=== PATIENT | female | born 1990 | race African-American/Black ===

== ENCOUNTER 2019-06-09 10:30 | Observation (INO) | payer OTHER ==
[~2019-06-09] VITALS: Ht 157.5 cm; Wt 112.5 kg
[2019-06-09 11:22] VITALS: BP 124/67
[2019-06-09 11:47] LABS: HEMATOCRIT 34.5 % (36-48); HEMOGLOBIN 11.3 g/dL (12.0-16.0); MEAN CORPUSCULAR VOLUME 87.1 fL (80-94); RED BLOOD CELL COUNT(AUTO) 3.96 MIL/uL (4.20-5.40); WHITE BLOOD COUNT (AUTO) 10.8 K/uL (4.8-10.8)
[2019-06-09 11:48] LABS: BASOPHILS % (AUTO) 0.2 % (0.0-2.0); EOSINOPHILS % (AUTO) 0.9 % (0.0-4.0); LYMPHOCYTES % (AUTO) 15.6 % (20.5-51.1); MEAN CORPUSCULAR HEMOGLOBIN 29 pg (27-31); MEAN CORPUSCULAR HGB CONC 33 g/dL (33-37); MONOCYTES % (AUTO) 11.9 % (1.7-9.3); NEUTROPHILS % (AUTO) 71.4 % (42.2-75.2); PLATELET COUNT (AUTO) 307 K/uL (140-450); RED CELL DISTRIBUTION WIDTH 14.3 % (11.6-13.7)
[2019-06-09 11:49] LABS: EOSINOPHILS # (AUTO) 0.1 K/uL (0-0.4); LYMPHOCYTES # (AUTO) 1.7 K/uL (2.5-16.5); MONOCYTES # (AUTO) 1.3 K/uL (0.8-1.0); NEUTROPHILS # (AUTO) 7.7 K/uL (1.8-7.7)
[2019-06-09] MEDS ORDERED: BETAMETH ACET/BETAMETH NA PH 30 MG/5 ML VIAL IM SCH (12:00)
[2019-06-09] MEDS ORDERED: BETAMETH ACET/BETAMETH NA PH 30 MG/5 ML VIAL IM ONE (12:18)
[2019-06-09 12:27] LABS: APPEARANCE,URINE CLEAR (CLEAR); BILIRUBIN,URINE NEGATIVE (NEGATIVE); BLOOD, URINE NEGATIVE (NEGATIVE); COLOR,URINE YELLOW (YELLOW); UGLUCOSE 1+ (NEGATIVE)
[2019-06-09 12:28] LABS: LEUKOCYTE ESTERASE ,URINE NEGATIVE (NEGATIVE); NITRITE, URINE NEGATIVE (NEGATIVE)
[2019-06-09 12:30] LABS: RBC,URINE NONE SEEN /HPF (0-5)
[2019-06-09] MEDS ORDERED: FOLI0.8T PO (15:26)
[2019-06-09] MEDS ORDERED: PNV91TAB10 PO (15:26)
[2019-06-10] MEDS ORDERED: OSC500 PO (13:12)
== END 2019-06-09 17:10 | disposition home or self-care (01) ==
LOC: MLD 10:30
PROVIDERS: ADMIT Obstetrics & Gynecology; ATTEND Obstetrics & Gynecology
DX: O13.3 Gestational [pregnancy-induced] hypertension without significant proteinuria, third trimester (principal); Z3A.32 32 weeks gestation of pregnancy
CPT/HCPCS: 36415; 76805; 81001; 84550; 85025; 85384; 86886; 86900; 86901; 87086; 96372; G0378; J0702; Q0092

== ENCOUNTER 2019-06-10 12:19 | Observation (INO) | payer OTHER ==
[~2019-06-10] VITALS: Ht 157.5 cm; Wt 112.5 kg
[~2019-06-10 12:19] MED LIST: FOLI0.8T PO; PNV91TAB10 PO
[2019-06-10] MEDS ORDERED: BETAMETH ACET/BETAMETH NA PH 30 MG/5 ML VIAL IM SCH (12:35)
[2019-06-10] MEDS ORDERED: BETAMETH ACET/BETAMETH NA PH 30 MG/5 ML VIAL IM ONE (12:46)
[2019-06-10 12:49] VITALS: BP 121/59
[2019-06-10] MEDS ORDERED: OSC500 PO (13:12)
== END 2019-06-10 13:30 | disposition home or self-care (01) ==
LOC: MLD 12:19
PROVIDERS: ADMIT Obstetrics & Gynecology; ATTEND Obstetrics & Gynecology
DX: O13.3 Gestational [pregnancy-induced] hypertension without significant proteinuria, third trimester (principal); Z3A.32 32 weeks gestation of pregnancy
CPT/HCPCS: 81000; 96372; G0378; J0702

== ENCOUNTER 2019-07-16 22:29 | Inpatient (IN) | payer OTHER ==
[~2019-07-16] VITALS: Ht 157.5 cm; Wt 115.2 kg
[~2019-07-16 22:29] MED LIST changes: +OSC500 PO
[2019-07-17 02:15] LABS: APPEARANCE,URINE CLEAR (CLEAR); COLOR,URINE YELLOW (YELLOW); UGLUCOSE 2+ (NEGATIVE)
[2019-07-17 02:16] LABS: BILIRUBIN,URINE NEGATIVE (NEGATIVE); BLOOD, URINE NEGATIVE (NEGATIVE); LEUKOCYTE ESTERASE ,URINE NEGATIVE (NEGATIVE); NITRITE, URINE NEGATIVE (NEGATIVE)
[2019-07-17 02:17] LABS: ANION GAP 12.6 (8-16); CARBON DIOXIDE 25.2 mmol/L (21-32); CREATININE 0.5 mg/dL (0.6-1.3); POTASSIUM 3.8 mmol/L (3.5-5.1)
[2019-07-17 02:18] LABS: RBC,URINE 0-5 /HPF (0-5); WBC,URINE 0-5 /HPF (0-5)
[2019-07-17 02:19] LABS: PROTHROMBIN TIME 9.3 secs (10.8-13.4)
[2019-07-17 02:22] LABS: ALBUMIN 2.4 g/dL (3.4-5.0); MAGNESIUM 1.7 mg/dL (1.8-2.4); TOTAL BILIRUBIN 0.1 mg/dL (0.0-1.0)
[2019-07-17] MEDS ORDERED: CLINDAMYCIN 900 MG in DEXTROSE 5% 100 ML IV SCH (02:25)
[2019-07-17] MEDS ORDERED: CARBOPROST 250 MCG/ML AMP IM PRN (02:25)
[2019-07-17] MEDS ORDERED: NALBUPHINE 10 MG/ML AMP IVP PRN (02:25)
[2019-07-17] MEDS ORDERED: PROMETHAZINE 25 MG/ML VIAL IVP PRN (02:25)
[2019-07-17] MEDS ORDERED: METHYLERGONOVINE 0.2 MG/ML AMP IM PRN (02:25)
[2019-07-17] MEDS ORDERED: MISOPROSTOL 25 MCG TAB VG PRN (02:30)
[2019-07-17] MEDS: LACTATED RINGERS 1,000 ML IV SCH ×2 (04:12→22:20)
[2019-07-17] MEDS ORDERED: MISOPROSTOL 25 MCG TAB ONE (04:15)
[2019-07-17 05:21] VITALS: BP 132/66
[2019-07-17] MEDS ORDERED: CLINDAMYCIN 900 MG/6 ML VIAL IV ONE ×3 (08:02→23:55)
[2019-07-17 10:02] LABS: BASOPHILS # (AUTO) 0.1 K/uL (0.00-0.22); BASOPHILS % (AUTO) 0.6 % (0.0-2.0); EOSINOPHILS # (AUTO) 0.1 K/uL (0-0.4); EOSINOPHILS % (AUTO) 0.5 % (0.0-4.0); HEMATOCRIT 35.3 % (36-48); HEMOGLOBIN 11.4 g/dL (12.0-16.0); LYMPHOCYTES % (AUTO) 17.6 % (20.5-51.1); MEAN CORPUSCULAR HEMOGLOBIN 28 pg (27-31); MEAN CORPUSCULAR HGB CONC 32 g/dL (33-37); MEAN CORPUSCULAR VOLUME 87.3 fL (80-94); MONOCYTES # (AUTO) 1.3 K/uL (0.8-1.0); MONOCYTES % (AUTO) 10.9 % (1.7-9.3); NEUTROPHILS # (AUTO) 8.1 K/uL (1.8-7.7); NEUTROPHILS % (AUTO) 70.4 % (42.2-75.2); PLATELET COUNT (AUTO) 305 K/uL (140-450); RED BLOOD CELL COUNT(AUTO) 4.04 MIL/uL (4.20-5.40); RED CELL DISTRIBUTION WIDTH 15.5 % (11.6-13.7); WHITE BLOOD COUNT (AUTO) 11.5 K/uL (4.8-10.8)
[2019-07-17] MEDS ORDERED: OXYTOCIN 20 UNITS in LACTATED RINGERS 1,000 ML IV SCH (12:20)
--- NOTE | 2019-07-17 13:53 | NUR ---
PATIENT HAS BEEN SCREENED AND CATEGORIZED LOW NUTRITION RISK. PATIENT WILL BE SEEN WITHIN 7 DAYS OF ADMISSION. 07/23/[address]
[2019-07-17] MEDS ORDERED: fentaNYL 0.05 MG/ML VIAL ONE ×2 (14:13→20:53)
[2019-07-17] MEDS: fentaNYL 0.05 MG/ML VIAL IVP PRN ×2 (14:15→21:01)
[2019-07-17] MEDS: CLINDAMYCIN 900 MG in DEXTROSE 5% 100 ML IV SCH (15:52)
[2019-07-17] MEDS ORDERED: ROPIVACAINE 0.2%/NS PREMIX 100 ML EPI ONE (22:26)
[2019-07-18] MEDS: CLINDAMYCIN 900 MG in DEXTROSE 5% 100 ML IV SCH ×3 (00:01→16:00)
[2019-07-18] MEDS ORDERED: CLINDAMYCIN 900 MG/6 ML VIAL IV ONE ×4 (08:01→23:57)
[2019-07-18] MEDS: LACTATED RINGERS 1,000 ML IV SCH ×2 (11:02→20:26)
[2019-07-18] MEDS ORDERED: ROPIVACAINE 0.2%/NS PREMIX 100 ML EPI ONE (18:57)
[2019-07-19] MEDS: CLINDAMYCIN 900 MG in DEXTROSE 5% 100 ML IV SCH (00:04)
[2019-07-19] MEDS ORDERED: ONDANSETRON 4 MG/2 ML VIAL IVP PRN ×2 (00:45→07:55)
[2019-07-19] MEDS ORDERED: NALOXONE 0.4 MG/ML VIAL IVP PRN ×2 (00:45→07:55)
[2019-07-19] MEDS ORDERED: diphenhydrAMINE 50 MG/ML VIAL IVP PRN (00:45)
[2019-07-19] MEDS ORDERED: HYDROmorphone 1 MG/ML AMP IVP PRN ×3 (00:45→16:35)
[2019-07-19] MEDS ORDERED: fentaNYL 0.05 MG/ML VIAL ONE ×4 (01:08→06:26)
[2019-07-19] MEDS: fentaNYL 0.05 MG/ML VIAL IVP PRN ×3 (01:11→06:10)
[2019-07-19] MEDS ORDERED: CITRIC ACID/SODIUM CITRATE 30 ML UDC ONE (06:32)
[2019-07-19] MEDS ORDERED: KETAMINE 500 MG/5 ML VIAL ONE (06:55)
[2019-07-19] MEDS ORDERED: MORPHINE PRES FREE 10 MG/10 ML AMP IV ONE (06:55)
[2019-07-19] MEDS ORDERED: MIDAZOLAM 2 MG/2 ML VIAL ONE (06:55)
[2019-07-19] MEDS ORDERED: CLINDAMYCIN 900 MG/6 ML VIAL IV ONE (07:10)
[2019-07-19] MEDS ORDERED: PROPOFOL 200 MG/20 ML VIAL IV ONE (07:10)
[2019-07-19] MEDS ORDERED: LIDOCAINE MPF 2% 100 MG/5 ML VIAL INJ ONE (07:11)
[2019-07-19] MEDS ORDERED: OXYTOCIN 20 UNITS in LACTATED RINGERS 1,000 ML IV SCH (07:51)
[2019-07-19] MEDS ORDERED: KETOROLAC 30 MG/ML VIAL IVP PRN (07:55)
[2019-07-19] MEDS ORDERED: MEASLES, MUMPS, AND RUBELLA 1 VIAL SQVAC PRN (08:45)
[2019-07-19] MEDS ORDERED: METHYLERGONOVINE 0.2 MG/ML AMP IM PRN (08:45)
[2019-07-19] MEDS ORDERED: MEPERIDINE 25 MG/ML SYR ONE (08:46)
[2019-07-19] MEDS ORDERED: OXYTOCIN 20 UNITS/LR PREMIX 1,000 ML IV ONE ×2 (08:57→14:36)
[2019-07-19] MEDS ORDERED: HYDROmorphone PFS 2 MG/ML SYR ONE ×3 (09:22→21:17)
[2019-07-19] MEDS ORDERED: KETOROLAC 30 MG/ML VIAL ONE (09:23)
[2019-07-19] MEDS ORDERED: KETOROLAC 30 MG/ML VIAL IVP SCH (09:55)
[2019-07-19] MEDS: KETOROLAC 30 MG/ML VIAL IM/IVP SCH ×2 (12:01→18:06)
[2019-07-19] MEDS: diphenhydrAMINE 50 MG/ML VIAL IVP PRN ×2 (12:03→16:01)
[2019-07-19 12:31] LABS: HEMATOCRIT 29.3 % (36-48); HEMOGLOBIN 9.5 g/dL (12.0-16.0); MEAN CORPUSCULAR HEMOGLOBIN 28 pg (27-31); MEAN CORPUSCULAR HGB CONC 33 g/dL (33-37); MEAN CORPUSCULAR VOLUME 86.3 fL (80-94); PLATELET COUNT (AUTO) 270 K/uL (140-450); RED BLOOD CELL COUNT(AUTO) 3.39 MIL/uL (4.20-5.40); RED CELL DISTRIBUTION WIDTH 16.1 % (11.6-13.7)
[2019-07-19 14:40] LABS: BASOPHILS % (MANUAL) 0 % (0-2); EOSINOPHILS % (MANUAL) 0 % (0-4); LYMPHOCYTES % (MANUAL) 6 % (20-46); MONOCYTES % (MANUAL) 5 % (5-12)
[2019-07-19] MEDS: OXYTOCIN 10 UNITS in LACTATED RINGERS 1,000 ML IV SCH (18:10)
[2019-07-19] MEDS ORDERED: CARBOPROST 250 MCG/ML AMP IM PRN (18:45)
[2019-07-19] MEDS ORDERED: PROMETHAZINE 25 MG/ML VIAL IVP PRN (18:45)
[2019-07-20] MEDS: KETOROLAC 30 MG/ML VIAL IM/IVP SCH ×2 (00:04→06:11)
[2019-07-20] MEDS: diphenhydrAMINE 50 MG/ML VIAL IVP PRN (01:32)
[2019-07-20] MEDS ORDERED: OXYTOCIN 20 UNITS/LR PREMIX 1,000 ML IV ONE (02:47)
[2019-07-20] MEDS: OXYTOCIN 10 UNITS in LACTATED RINGERS 1,000 ML IV SCH (02:53)
[2019-07-20 06:20] LABS: BASOPHILS % (AUTO) 0.1 % (0.0-2.0); EOSINOPHILS # (AUTO) 0.1 K/uL (0-0.4); EOSINOPHILS % (AUTO) 0.3 % (0.0-4.0); HEMATOCRIT 25.8 % (36-48); HEMOGLOBIN 8.4 g/dL (12.0-16.0); LYMPHOCYTES # (AUTO) 2.1 K/uL (2.5-16.5); LYMPHOCYTES % (AUTO) 9.4 % (20.5-51.1); MEAN CORPUSCULAR HEMOGLOBIN 28 pg (27-31); MEAN CORPUSCULAR HGB CONC 32 g/dL (33-37); MEAN CORPUSCULAR VOLUME 86.2 fL (80-94); MONOCYTES # (AUTO) 1.9 K/uL (0.8-1.0); MONOCYTES % (AUTO) 8.3 % (1.7-9.3); NEUTROPHILS # (AUTO) 18.6 K/uL (1.8-7.7); NEUTROPHILS % (AUTO) 81.9 % (42.2-75.2); PLATELET COUNT (AUTO) 234 K/uL (140-450); RED CELL DISTRIBUTION WIDTH 16.1 % (11.6-13.7); WHITE BLOOD COUNT (AUTO) 22.7 K/uL (4.8-10.8)
[2019-07-20] MEDS: IBUPROFEN 800 MG TAB PO SCH ×3 (09:00→17:19)
[2019-07-20] MEDS: BISACODYL 10 MG SUPP RC SCH ×3 (09:08→19:58)
[2019-07-20] MEDS: oxyCODONE/APAP 5/325 MG 1 TAB TAB PO PRN ×2 (10:10→20:14)
[2019-07-21] MEDS: oxyCODONE/APAP 5/325 MG 1 TAB TAB PO PRN ×5 (00:22→20:30)
[2019-07-21] MEDS ORDERED: oxyCODONE/APAP 5/325 MG 1 TAB TAB ONE (07:07)
[2019-07-21] MEDS: IBUPROFEN 800 MG TAB PO SCH ×3 (09:14→17:18)
[2019-07-22] MEDS: oxyCODONE/APAP 5/325 MG 1 TAB TAB PO PRN ×3 (06:11→16:00)
[2019-07-22] MEDS ORDERED: IBUP-2217 PO (06:47)
[2019-07-22] MEDS ORDERED: ACET-9494 PO (06:47)
[2019-07-22] MEDS: BISACODYL 10 MG SUPP RC SCH (08:25)
[2019-07-22] MEDS: IBUPROFEN 800 MG TAB PO SCH ×2 (09:17→13:00)
== END 2019-07-22 17:30 | disposition home or self-care (01) | DRG 788 ==
LOC: MLD 22:29 → MFCC 07-19 09:40
PROVIDERS: ADMIT Obstetrics & Gynecology; ATTEND Obstetrics & Gynecology
PROC: 10D00Z1 Extraction of Products of Conception, Low, Open Approach (ICD-10-PCS; principal; 2019-07-19 06:30)
PROC: 3E0234Z Introduction of Serum, Toxoid and Vaccine into Muscle, Percutaneous Approach (ICD-10-PCS; 2019-07-20)
DX: O14.04 Mild to moderate pre-eclampsia, complicating childbirth (principal); O62.2 Other uterine inertia; O99.824 Streptococcus B carrier state complicating childbirth; Z37.0 Single live birth; Z3A.37 37 weeks gestation of pregnancy; Z23 Encounter for immunization
CPT/HCPCS: 36415; 51702; 59200; 76815; 80053; 81001; 83735; 85025; 85384; 85610; 85730; 86592; 86886; 86900; 86901; 87653-90; 90715; J1170; J1200; J1885; J2001; J2175; J2250; J2270; J2590; J2704; J2795; J3010; J3490; J7060; J7120; Q0092